=== PATIENT | male | born 1960 | race Caucasian/White ===

== ENCOUNTER 2018-05-28 14:04 | Observation (INO) ==
[2018-05-28] MEDS ORDERED: Sod Chloride 0.9% Inj 1,000 ML IV.CONT SCH (14:30)
--- NOTE | 2018-05-28 14:30 | ED ---
HPI General Chief complaint: Chest Pain Stated complaint: chest pain Time Seen by Provider: 05/28/18 14:21 Source: patient Mode of arrival: ambulatory Limitations: no limitations History of Present Illness HPI narrative: This 57-year-old male says he had pain across his abdomen since about 1:00 this morning. He was up watching TV when the pain started and it was more severe then. He had eaten some chicken prior to the onset of the pain. He does not recall having pain like this before. He has no history of abdominal surgery. He was not short of breath. He does smoke cigarettes. He has no history of heart disease. The pain is fairly constant pain that wraps around to both flank areas. Related Data Home Medications Medication Instructions Recorded Confirmed No Known Home Medications 05/28/18 05/28/18 Allergies Allergy/AdvReac Type Severity Reaction Status Date / Time No Known Allergies Allergy Verified 05/28/18 14:15 Review of Systems ROS: all other systems reviewed are negative [facility] Medical History Medical History No significant past medical history (Acute) Surgical History Surgical History History of nasal surgery (Acute) Social History Social History Substance History: No History of Abuse Smoking Status: Current every day smoker Tobacco Type: Cigarettes How Often Do You Have a Drink Containing Alcohol: Monthly or less Immunization History Tetanus Immunization: Unsure Exam Narrative Exam Narrative: GENERAL: [-] SKIN: Focused skin assessment warm/dry. HEAD: Atraumatic. Normocephalic. EYES: Pupils equal and round. No scleral icterus. No injection or drainage. ENT: No nasal bleeding or discharge. Mucous membranes pink and moist. NECK: Trachea midline. No JVD. CARDIOVASCULAR: Regular rate and rhythm. No murmur appreciated. RESPIRATORY: No accessory muscle use. Clear to auscultation. Breath sounds equal bilaterally. GASTROINTESTINAL: Abdomen soft, there is tenderness in the epigastric and right upper quadrant areas.nondistended. Hepatic and splenic margins not palpable. MUSCULOSKELETAL: No obvious deformities. No clubbing. No cyanosis. No edema. NEUROLOGICAL: Awake and alert. No obvious cranial nerve deficits. Motor grossly within normal limits. Normal speech. PSYCHIATRIC: Appropriate mood and affect; insight and judgment normal. Course Initial Documented Vital Signs Temperature 98.3 F 05/28/18 14:10 Pulse Rate 57 L 05/28/18 14:10 Respiratory Rate 15 05/28/18 14:10 Blood Pressure 175/81 H 05/28/18 14:10 Last Documented Vital Signs Temperature 98.3 F 05/28/18 14:10 Pulse Rate 57 L 05/28/18 14:10 Respiratory Rate 15 05/28/18 14:10 Blood Pressure 175/81 H 05/28/18 14:10 Medical Decision Making MDM Narrative Medical decision making narrative: Patient's pain is not consistent with coronary artery disease. An EKG and troponin are negative. Workup for cholecystitis has been done. His lipase is 90 is alk phos is 136. Hemoglobin 16 4 with a white count of 15,000. An ultrasound of the gallbladder shows a prominent gallstone in the gallbladder measuring 3.8 cm. There is thickening of the gallbladder wall with some fluid around the gallbladder. This could be consistent with acute or chronic cholecystitis. I suspect this is acute cholecystitis as the patient has not had these symptoms before. His pain is less than it was last night but he is still having pain. Case discussed with Dr. Phillips. He will be admitted to medical service with diagnosis of acute cholecystitis Medical Screen Exam Complete: Yes Emergency Medical Condition: Yes Differential Diagnosis Differential Diagnosis: Differential includes cholelithiasis, cholecystitis, gastritis, coronary artery disease. Lab Data Result diagrams: 05/28/18 14:25 05/28/18 14:25 Lab Results 05/28/18 05/28/18 Range/Units 14:25 14:25 CBC w Diff Auto diff final WBC 15.1 H (4.0-11.0) th/mm3 RBC 5.37 (4.50-5.90) mil/mm3 Hgb 16.4 (13.0-17.0) gm/dL Hct 48.7 (39.0-51.0) % MCV 90.6 (80.0-100.0) fL MCH 30.5 (27.0-34.0) pg MCHC 33.6 (32.0-36.0) % RDW 13.3 (11.6-17.2) % Plt Count 243 (150-450) th/mm3 MPV 7.9 (7.0-11.0) fL Neut % (Auto) 93.4 H (16.0-70.0) % Lymph % (Auto) 4.1 L (9.0-44.0) % [place] % (Auto) 2.4 (0.0-8.0) % Eos % (Auto) 0.0 (0.0-4.0) % Baso % (Auto) 0.1 (0.0-2.0) % Neut # (Auto) 14.1 H (1.8-7.7) th/mm3 Lymph # (Auto) 0.6 L (1.0-4.8) th/mm3 [place] # (Auto) 0.4 (0.0-0.9) th/mm3 Eos # (Auto) 0.0 (0.0-0.4) th/mm3 Baso # (Auto) 0.0 (0.0-0.2) th/mm3 WBC Differential . Differential Comment . Sodium 136 (136-145) meq/L Potassium 3.9 (3.5-5.1) meq/L Chloride 104 (98-107) meq/L Carbon Dioxide 22.8 (21.0-32.0) meq/L Anion Gap 9 (5-15) meq/L BUN 17 (7-18) mg/dL Creatinine 0.67 (0.60-1.30) mg/dL Estimated GFR Greater than 89 (>89) mL/min Random Glucose 120 H (74-106) mg/dL Calcium 8.6 (8.5-10.1) mg/dL Magnesium 2.1 (1.5-2.5) mg/dL Total Bilirubin 0.4 (0.2-1.0) mg/dL AST 17 (15-37) U/L ALT 18 (12-78) U/L Alkaline Phosphatase 136 H (45-117) U/L Troponin I Less than 0.02 L (0.02-0.05) ng/mL Total Protein 7.7 (6.4-8.2) g/dL Albumin 3.6 (3.4-5.0) g/dL Lipase 90 (73-393) U/L Imaging Data Radiologist's impression: Gallbladder Ultrasound 05/28/18 14:27 CONCLUSION: 1. Prominent gallstone in the gallbladder measuring 3.8 cm. There is thickening of the gallbladder wall with some fluid around the gallbladder. These findings can be seen with either acute or chronic cholecystitis. Recommend correlation with patient's physical exam and laboratory values. Discharge Plan Discharge Disposition Patient Disposition: ED Admit(ED Internal Use Only) Discharge Condition Condition: Fair Discharge Order Discharge Orders: ED Use Only Admit Order (Routine); Ordered 05/28/18 Ordered By: Sahil Lawler Discharge Details Diagnosis: Acute calculous cholecystitis Physicians Team ED Provider: Sahil Lawler Primary Care Provider: UNKNOWN, Rxs /Orders / Referrals /Forms Prescriptions: No Action No Known Home Medications RF: 0 Discharge Instructions Patient Printed Instructions: Chest Pain (ED) Status ED Status: With Doctor
[2018-05-28 14:44] LABS: Baso % (Auto) 0.1 % (0.0-2.0); Hematocrit 48.7 % (39.0-51.0); Hemoglobin 16.4 gm/dL (13.0-17.0); Lymph # (Auto) 0.6 th/mm3 (1.0-4.8); Lymph % (Auto) 4.1 % (9.0-44.0); Mean Corpuscular HGB Conc 33.6 % (32.0-36.0); Mean Corpuscular Hemoglobin 30.5 pg (27.0-34.0); Mean Corpuscular Volume 90.6 fL (80.0-100.0); Mean Platelet Volume 7.9 fL (7.0-11.0); Mono # (Auto) 0.4 th/mm3 (0.0-0.9); Mono % (Auto) 2.4 % (0.0-8.0); Neut # (Auto) 14.1 th/mm3 (1.8-7.7); Neut % (Auto) 93.4 % (16.0-70.0); Platelet Count 243 th/mm3 (150-450); Red Blood Count 5.37 mil/mm3 (4.50-5.90); Red Cell Distribution Width 13.3 % (11.6-17.2); White Blood Count 15.1 th/mm3 (4.0-11.0)
[2018-05-28 14:56] LABS: Chloride 104 meq/L (98-107); Potassium 3.9 meq/L (3.5-5.1); Sodium 136 meq/L (136-145)
[2018-05-28 15:00] LABS: Albumin 3.6 g/dL (3.4-5.0); Anion Gap 9 meq/L (5-15); Blood Urea Nitrogen 17 mg/dL (7-18); Calcium 8.6 mg/dL (8.5-10.1); Carbon Dioxide 22.8 meq/L (21.0-32.0); Glucose,Random 120 mg/dL (74-106); Lipase 90 U/L (73-393); Magnesium 2.1 mg/dL (1.5-2.5)
[2018-05-28 15:03] LABS: Alanine Aminotransferase 18 U/L (12-78); Aspartate Aminotransferase 17 U/L (15-37); Glomerular Filtration Rate Greater Than 89 mL/min (>89)
--- NOTE | 2018-05-28 15:04 | US ---
EXAM DATE: 05/28/2018 2:58 PM EST AGE/SEX: 57 years / Male INDICATIONS: Epigastric pain. CLINICAL DATA: This is the patient's initial encounter. Patient reports that signs and symptoms have been present for 1 day and indicates a pain score of 7/10. MEDICAL/SURGICAL HISTORY: . Abdominal pain. . Nasal surgery. COMPARISON: No prior exams available for comparison. MEASUREMENTS: Liver:__ 18.7 cm. Common Bile Duct:__ 5mm. FINDINGS: Liver: The liver is mildly enlarged. The echogenicity is within normal limits. There are no dilated biliary ducts. There is no evidence of ascites. Portal Vein: Hepatopedal flow seen in portal vein. Common Duct: No intraluminal mass or stone visualized. Gallbladder: There is a prominent stone along the base of the gallbladder measuring approximately 3. 8 cm. There is some thickening of the gallbladder wall at 6 mm with some fluid around the gallbladder . Pancreas: The visualized portions are within normal limits Right Kidney: Normal echogenicity and cortical thickness. No mass or hydronephrosis. Other: None. CONCLUSION: 1. Prominent gallstone in the gallbladder measuring 3.8 cm. There is thickening of the gallbladder w all with some fluid around the gallbladder. These findings can be seen with either acute or chronic c holecystitis. Recommend correlation with patient's physical exam and laboratory values. Electronically signed by: Bran Agarwal MD Board Certified Radiologist 05/28/2018 3:02 PM EST
[2018-05-28 15:05] LABS: Total Protein 7.7 g/dL (6.4-8.2)
[2018-05-28 15:06] LABS: Alkaline Phosphatase 136 U/L (45-117)
[2018-05-28] MEDS ORDERED: Piperacil/Tazo 4.5 GM Premix 4.5 GM/100 ML BAG IV.SIG SCH ×2 (16:00→21:00)
[2018-05-28] MEDS ORDERED: Bisacodyl 10 MG Supp RECTAL PRN ×2 (16:26→16:36)
[2018-05-28] MEDS ORDERED: Acetaminophen 325 MG Tablet PO PRN ×2 (16:26→16:36)
[2018-05-28] MEDS ORDERED: Senna/Docusate Sodium 8.6/50 MG Tablet PO PRN (16:36)
--- NOTE | 2018-05-28 17:19 | P.HPIM ---
History of Present Illness Service: Hospitalist Primary Care Physician: UNKNOWN Chief Complaint: Abdominal pain History of Present Illness: Patient is a 57-year-old male who presented to the emergency room with a complaint of pain across his abdomen since morning. Reports a sharp pain that starts epigastrically and rotates around his flanks. He has had some episodes of very brief intermittent pain throughout the years but nothing like this before. Denies any medical conditions-reports his last physical was about 2-3 years ago when he was living in [place]. Takes no regularly scheduled medications. No family history of gallbladder problems that he knows of; only family history he can recall is that both parents had strokes. Denies chest pain or shortness of breath. No fever or chills. No active nausea or vomiting; has no desire for food at this time due to the pain. No recent diarrhea. Reports that he is still having frequent sharp pains through his upper abdomen. Patient initially presented with a complaint of chest pain as well. He was evaluated in the emergency room - EKG and troponins negative. Inpatient Certification Inpatient Certification: I certify that the inpatient services were ordered in accordance with Medicare regulations governing the order. This includes certification that hospital inpatient services are reasonable and necessary and in the case of services not specified as inpatient-only under 42 CFR 419.22(n), that they are appropriately provided as inpatient services in accordance to with the 2-midnight benchmark under 43 CFR 412.3(e) Estimated Total Length of Stay (Days): 2 Plans for Post Hospital Care: Not yet determined Review of Systems Review of Systems: all other systems reviewed are negative [facility] Medical History Medical History No significant past medical history (Acute) Surgical History Surgical History History of nasal surgery (Acute) Family History Family History Father Stroke Mother Stroke Social History Social History Substance History: No History of Abuse Smoking Status: Current every day smoker Tobacco Type: Cigarettes How Often Do You Have a Drink Containing Alcohol: Monthly or less Immunization History Tetanus Immunization: Unsure Medications and Allergies Allergies Allergy/AdvReac Type Severity Reaction Status Date / Time No Known Allergies Allergy Verified 05/28/18 14:15 Home Medications Medication Instructions Recorded Confirmed Type No Known Home Medications 05/28/18 05/28/18 History Active Medications: Active Medications Acetaminophen (Tylenol) 650 mg PO Q4H PRN PRN Reason: Temp > 100.4 Al Hydroxide/Mg Hydroxide (Milk Of Magnesia Liq) 30 ml PO Q12H PRN PRN Reason: Mild Constipation Bisacodyl (Dulcolax Supp) 10 mg RECTAL DAILY PRN PRN Reason: SEVERE CONSITIPATION Sodium Chloride (Ns Inj) 1,000 mls @ 100 mls/hr IV.CONT .Q10H DIYA Stop: 05/29/18 00:29 Last Admin: 05/28/18 14:33 Dose: 125 mls/hr Piperacillin/Tazobactam/Dextrose (Zosyn 4.5 Gm Premix) 4.5 gm in 100 mls @ 200 mls/hr IV.SIG ONCE DIYA Piperacillin/Tazobactam/Dextrose (Zosyn 3.375 Gm Premix) 3.375 gm in 50 mls @ 100 mls/hr IV.SIG Q6H DIYA Lactulose (Lactulose Liq) 30 ml PO DAILY PRN PRN Reason: SEVERE CONSITIPATION Ondansetron HCl (Zofran Inj) 4 mg IV.PUSH Q6H PRN PRN Reason: NAUSEA OR VOMITING Sennosides (Senokot) 17.2 mg PO Q12H PRN PRN Reason: Moderate Constipation Sodium Chloride (Ns Flush) 2 ml IV.FLUSH PRN PRN PRN Reason: FLUSH AFTER USING IV ACCESS Sodium Chloride (Ns Flush) 2 ml IV.FLUSH BID DIYA Sodium Chloride (Ns Flush) 2 ml IV.FLUSH PRN PRN PRN Reason: FLUSH AFTER USING IV ACCESS Physical Exam Vital signs: Last Vital Signs Temp 98.3 F 05/28/18 14:10 Pulse 50 L 05/28/18 16:35 Resp 16 05/28/18 16:35 BP 153/82 H 05/28/18 16:35 Pulse Ox 97 05/28/18 16:35 Intake & Output 05/26/18 05/27/18 05/28/18 05/29/18 06:59 06:59 06:59 06:59 Weight 79 kg Narrative: GENERAL: Well-nourished, well-developed adult male in no obvious distress. SKIN: Warm and dry. HEAD: Atraumatic. Normocephalic. CARDIOVASCULAR: Regular rate and rhythm. RESPIRATORY: No accessory muscle use. Clear to auscultation. Breath sounds equal bilaterally. GASTROINTESTINAL: Abdomen soft, tender through epigastric and right upper quadrant, some guarding, non-distended. Positive bowel sounds. MUSCULOSKELETAL: Extremities without clubbing, cyanosis, or edema. No obvious deformities. NEUROLOGICAL: Awake and alert. No obvious cranial nerve deficits. Motor grossly within normal limits. Normal speech. PSYCHIATRIC: Appropriate mood and affect; insight and judgment good. Results Labs CBC & Chem 7: 05/28/18 14:25 05/28/18 14:25 Imaging Impressions Gallbladder Ultrasound 05/28/18 14:27 CONCLUSION: 1. Prominent gallstone in the gallbladder measuring 3.8 cm. There is thickening of the gallbladder wall with some fluid around the gallbladder. These findings can be seen with either acute or chronic cholecystitis. Recommend correlation with patient's physical exam and laboratory values. Caprini VTE Risk Assessment Caprini VTE Risk Assessment: Moderate/High Risk (score >= 2) Caprini Risk Assessment Model: Point Value = 1 Point Value = 2 Point Value = 3 Point Value = 5 Age 41-60 Minor surgery BMI > 25 kg/m2 Swollen legs Varicose veins or History of unexplained or recurrent spontaneous Oral contraceptives or hormone replacement Sepsis (< 1 month) Serious lung disease, including pneumonia (< 1 month) Abnormal pulmonary function Acute myocardial infarction Congestive heart failure (< 1 month) History of inflammatory bowel disease Medical patient at bed rest Age 61-74 Arthroscopic surgery Major open surgery (> 45 min) Laparoscopic surgery (> 45 min) Malignancy Confined to bed (> 72 hours) Immobilizing plaster cast Central venous access Age >= 75 History of VTE Family history of VTE Factor V Leiden Prothrombin [id number] Lupus anticoagulant Anticardiolipin antibodies Elevated serum homocysteine Heparin-induced thrombocytopenia Other congenital or acquired thrombophilia Stroke (< 1 month) Elective arthroplasty Hip, pelvis, or leg fracture Acute spinal cord injury (< 1 month) Prophylaxis Regimen: Total Risk Factor Score Risk Level Prophylaxis Regimen 0-1 Low Early ambulation 2 Moderate Order ONE of the following: *Sequential Compression Device (SCD) *Heparin 5000 units SQ BID 3-4 Higher Order ONE of the following medications: *Heparin 5000 units SQ TID *Enoxaparin/Lovenox 40 mg SQ daily (WT < 150 kg, CrCl > 30 mL/min) *Enoxaparin/Lovenox 30 mg SQ daily (WT < 150 kg, CrCl > 10-29 mL/min) *Enoxaparin/Lovenox 30 mg SQ BID (WT < 150 kg, CrCl > 30 mL/min) AND/OR *Sequential Compression Device (SCD) 5 or more Highest Order ONE of the following medications: *Heparin 5000 units SQ TID (Preferred with Epidurals) *Enoxaparin/Lovenox 40 mg SQ daily (WT < 150 kg, CrCl > 30 mL/min) *Enoxaparin/Lovenox 30 mg SQ daily (WT < 150 kg, CrCl > 10-29 mL/min) *Enoxaparin/Lovenox 30 mg SQ BID (WT < 150 kg, CrCl > 30 mL/min) AND *Sequential Compression Device (SCD) Assessment and Plan Plan Patient is a 57-year-old male who presented to the emergency room with a complaint of pain across his abdomen since morning. Reports a sharp pain that starts epigastrically and rotates around his flanks. Acute cholecystitis -N.p.o.; IVF fluid for hydration -Dr. Phillips consulted -Zosyn started; WBCs 15,000 at admit. -Pain management. E force database consulted; patient has no history of recent narcotic prescription. DVT prophylaxis: SCDs; chemical prophylaxis per surgery Discharge planning: Likely home once resolved
[2018-05-28] MEDS ORDERED: Morphine Inj 4 MG/ML Vial IV.PUSH PRN ×4 (17:22→21:07)
[2018-05-28] MEDS ORDERED: Morphine Sulfate Inj 2 MG/ML Vial IV.PUSH PRN (17:22)
[2018-05-28] MEDS ORDERED: Naloxone Inj 0.4 MG/ML Vial IV.PUSH PRN (17:22)
--- NOTE | 2018-05-29 00:28 | MB ---
cc: Zhao Phillips MD DATE: 05/28/2018 PHYSICIAN REQUESTING CONSULTATION: MAYNOR Walker REASON FOR CONSULTATION: Acute cholecystitis. HISTORY OF PRESENT ILLNESS: The patient is a 57-year-old man who was in his normal state of health when he developed chest and epigastric pain, sudden severe onset after eating some barbecue. This continued to get worse overnight, and the patient could not sleep. He has never had pain like this before and denies any previous history or knowledge of any gallbladder problems or gallstones. The patient was seen at [facility], underwent cardiac evaluation as well as an ultrasound of his gallbladder. The patient had no evidence of cardiac disease and had significant edema of his gallbladder with a large gallstone in the neck of the gallbladder. The patient also had elevated leukocytosis of 15,000. The patient also clinically had a concern for acute cholecystitis and therefore was admitted and placed on IV antibiotics. General surgery was consulted. REVIEW OF SYSTEMS: A 12-point review of systems conducted with the patient and is negative except for the pertinent positives mentioned above in history of present illness. PAST MEDICAL HISTORY: None. PAST SURGICAL HISTORY: No previous major operations. ALLERGIES: NO KNOWN DRUG ALLERGIES. HOME MEDICATIONS: None. SOCIAL HISTORY: The patient uses cigarettes on a currently every day use. The patient denies illicit drug use or history of abuse. He does occasionally use alcohol. PHYSICAL EXAMINATION: VITAL SIGNS: Temperature 98.3 degrees, pulse 57, blood pressure 175/81, O2 saturation is 95% on room air. GENERAL: The patient is a well-developed, well-nourished, male in no acute distress. He does not appear acute or chronically ill. He appears comfortable, lying in hospital bed. HEENT: Head is normocephalic, atraumatic. Pupils are round and reactive and accommodate to light. Sclerae are anicteric. Oral cavity is clear. Airway is patent. NECK: Supple. No JVD. LUNGS: Breath sounds present bilaterally. Nonlabored breathing pattern. HEART: Regular rate and rhythm. PMI is nondisplaced. ABDOMEN: Soft. Tender to palpation in right upper quadrant with palpable gallbladder dome with reproducible pain without Villafana sign. No surgical scars. No hernias. Normal bowel sounds. EXTREMITIES: No clubbing, cyanosis, or edema. NEUROLOGIC: The patient is alert and oriented x3. Nonfocal peripheral exam. Cranial nerves 2-12 are grossly intact. Mood, judgment, and insight are intact. LABORATORY VALUES: Leukocytosis 15,000, hemoglobin is 15. Bilirubin is 0.4, AST is 17, ALT is 18, alkaline phosphatase is 136. IMAGING: Ultrasound of the gallbladder shows a large gallstone in the neck of the gallbladder. ASSESSMENT AND PLAN: The patient is a 57-year-old male with symptomatic cholelithiasis with possible early cholecystitis. I discussed with the patient the gallbladder disease including cholelithiasis and acute cholecystitis. I discussed nonoperative and operative management as well as more urgent surgery versus elective surgery. The patient would prefer to be able to be treated nonoperatively with antibiotics and to be discharged in the next 24-48 hours, to return to work on Thursday and to schedule a laparoscopic cholecystectomy in a more elective fashion. If he chooses to do this and is medically indicated to be discharged over the weekend, he can follow up with me next week in the office for planned cholecystectomy. We will also discharge the patient on antibiotics in this case. However if the patient develops persistent or worsening signs of acute cholecystitis such as pain and signs of continued infection, he is agreeable to staying in the hospital at [place] and undergoing urgent laparoscopic cholecystectomy, likely on Thursday. The patient can have clear liquid diet at this time. The patient is discharged. Also of note, he will need to be on low fat diet. Thank you very much for this consultation. We will follow along with the patient. Please call if any questions or if we can be of any further assistance in this patient's care. Zhao Phillips MD AWG/donna , 11:49 PM , 11:59 PM
[2018-05-29] MEDS: Piperacil/Tazo 3.375 GM Premix 3.375 GM/50 ML PIGGYBACK IV.SIG SCH ×2 (03:26→09:33)
--- NOTE | 2018-05-29 10:26 | P.PNIM ---
Subjective Interval history: Patient seen lying in bed. Denies any current abdominal pain. Has been tolerating clear liquids with no problem. Still has very little appetite. Agrees that he would like to follow-up outpatient for possible surgery. Physical Exam Vital signs: Last Vital Signs Temp 99.4 F 05/29/18 04:00 Pulse 66 05/29/18 08:00 Resp 17 05/29/18 04:00 BP 134/84 05/29/18 04:00 Pulse Ox 96 05/29/18 04:00 Intake & Output 05/27/18 05/28/18 05/29/18 05/30/18 06:59 06:59 06:59 06:59 Intake Total 1150 / 1150 50 / 50 Balance 1150 / 1150 50 / 50 Weight 78.4 kg Narrative: GENERAL: Well-nourished, well-developed adult male in no obvious distress. SKIN: Warm and dry. HEAD: Atraumatic. Normocephalic. CARDIOVASCULAR: Regular rate and rhythm. RESPIRATORY: No accessory muscle use. Clear to auscultation. Breath sounds equal bilaterally. GASTROINTESTINAL: Abdomen soft, tender through epigastric and right upper quadrant, not guarding now, non-distended. Positive bowel sounds. MUSCULOSKELETAL: Extremities without clubbing, cyanosis, or edema. No obvious deformities. NEUROLOGICAL: Awake and alert. No obvious cranial nerve deficits. Motor grossly within normal limits. Normal speech. PSYCHIATRIC: Appropriate mood and affect; insight and judgment good. Results Labs CBC & Chem 7: 05/28/18 14:25 05/28/18 14:25 Imaging Imaging: Impressions Gallbladder Ultrasound 05/28/18 14:27 CONCLUSION: 1. Prominent gallstone in the gallbladder measuring 3.8 cm. There is thickening of the gallbladder wall with some fluid around the gallbladder. These findings can be seen with either acute or chronic cholecystitis. Recommend correlation with patient's physical exam and laboratory values. Assessment and Plan Plan Patient is a 57-year-old male who presented to the emergency room with a complaint of pain across his abdomen since morning. Reports a sharp pain that starts epigastrically and rotates around his flanks. Acute cholecystitis -N.p.o.; IVF fluid for hydration -Dr. Phillips consulted -recommends cholecystectomy however it is not emergent. Patient has decided to follow-up as outpatient -Zosyn started; WBCs 15,000 at admit. -Pain management. E force database consulted; patient has no history of recent narcotic prescription. DVT prophylaxis: SCDs; chemical prophylaxis per surgery Discharge planning: Home today Progress Note: Quality VTE Deep Vein Thrombosis/Pulmonary Embolism Present on Admission: No
--- NOTE | 2018-05-29 10:30 | P.DS ---
DS: Providers Date of admission: 05/28/18 16:26 Primary care physician: UNKNOWN Consults: 05/28/18 16:25 Consult to General Surgery Routine Consulting Provider: Zhao Phillips Reason for Consultation: acute cholecystitis Notified:: Service Spoke with:: JULIUS Date Notified:: 05/28/18 Time Notified:: 16:31 Ordering Provider: YOSEF Brief History from admission: Patient is a 57-year-old male who presented to the emergency room with a complaint of pain across his abdomen since morning. Reports a sharp pain that starts epigastrically and rotates around his flanks. He has had some episodes of very brief intermittent pain throughout the years but nothing like this before. Denies any medical conditions-reports his last physical was about 2-3 years ago when he was living in [place]. Takes no regularly scheduled medications. No family history of gallbladder problems that he knows of; only family history he can recall is that both parents had strokes. Denies chest pain or shortness of breath. No fever or chills. No active nausea or vomiting; has no desire for food at this time due to the pain. No recent diarrhea. Reports that he is still having frequent sharp pains through his upper abdomen. Patient initially presented with a complaint of chest pain as well. He was evaluated in the emergency room - EKG and troponins negative. DS: Summary Patient is a 57-year-old male who presented to the emergency room with a complaint of pain across his abdomen since morning. Reports a sharp pain that starts epigastrically and rotates around his flanks. Acute cholecystitis -Initially n.p.o.; IVF fluid for hydration; transition to clear liquids - tolerating well -Dr. Phillips consulted -recommends cholecystectomy however it is not emergent. Patient has decided to follow-up as outpatient -Zosyn started; WBCs 15,000 at admit. Gen surgery recommending discharge on p.o. antibiotics. -Pain management requiring narcotic. E force database consulted; patient has no history of recent narcotic prescription. Time Spent with Patient Total time spent providing and/or coordinating discharge services: <30 min Quality: VTE Deep Vein Thrombosis/Pulmonary Embolism Present on Admission: No Exam Narrative Exam Narrative: GENERAL: Well-nourished, well-developed adult male in no obvious distress. SKIN: Warm and dry. HEAD: Atraumatic. Normocephalic. CARDIOVASCULAR: Regular rate and rhythm. RESPIRATORY: No accessory muscle use. Clear to auscultation. Breath sounds equal bilaterally. GASTROINTESTINAL: Abdomen soft, tender through epigastric and right upper quadrant, not guarding now, non-distended. Positive bowel sounds. MUSCULOSKELETAL: Extremities without clubbing, cyanosis, or edema. No obvious deformities. NEUROLOGICAL: Awake and alert. No obvious cranial nerve deficits. Motor grossly within normal limits. Normal speech. PSYCHIATRIC: Appropriate mood and affect; insight and judgment good. Results Labs on day of discharge: Labs from last 24 hours 05/28/18 05/28/18 14:25 14:25 CBC w Diff Auto diff final WBC 15.1 H RBC 5.37 Hgb 16.4 Hct 48.7 MCV 90.6 MCH 30.5 MCHC 33.6 RDW 13.3 Plt Count 243 MPV 7.9 Neut % (Auto) 93.4 H Lymph % (Auto) 4.1 L Sharkey % (Auto) 2.4 Eos % (Auto) 0.0 Baso % (Auto) 0.1 Neut # (Auto) 14.1 H Lymph # (Auto) 0.6 L Sharkey # (Auto) 0.4 Eos # (Auto) 0.0 Baso # (Auto) 0.0 WBC Differential . Differential Comment . Sodium 136 Potassium 3.9 Chloride 104 Carbon Dioxide 22.8 Anion Gap 9 BUN 17 Creatinine 0.67 Estimated GFR Greater than 89 Random Glucose 120 H Calcium 8.6 Magnesium 2.1 Total Bilirubin 0.4 AST 17 ALT 18 Alkaline Phosphatase 136 H Troponin I Less than 0.02 L Total Protein 7.7 Albumin 3.6 Lipase 90 Impressions ITS Impressions Gallbladder Ultrasound 05/28/18 14:27 CONCLUSION: 1. Prominent gallstone in the gallbladder measuring 3.8 cm. There is thickening of the gallbladder wall with some fluid around the gallbladder. These findings can be seen with either acute or chronic cholecystitis. Recommend correlation with patient's physical exam and laboratory values. Discharge Plan Discharge Disposition Patient Disposition: 01 Discharge Home Discharge Condition Condition: Stable Discharge Order Discharge Orders: Discharge Order (Routine); Ordered 05/29/18 Ordered By: Tamiko Monreal Physicians Team ED Provider: Sahil Lawler Primary Care Provider: UNKNOWN, Attending Provider: Alcon Ramos Other Providers: Zhao Phillips Rxs /Orders / Referrals /Forms Prescriptions: New tramadol 50 mg tablet 100 mg PO Q6H PRN (Reason: Acute Pain Exception) Qty: 24 RF: 0 cefuroxime axetil 500 mg tablet 500 mg PO BID 10 Days Qty: 20 RF: 0 Continue No Known Home Medications RF: 0 Referrals: Zhao Phillips MD [Physician] - See Instructions Discharge Instructions Patient Printed Instructions: Cholecystitis (DC) Discharge Interventions Interventions: Discharge Planning - Case Management Last Done: 05/29/18 10:20 Status ED Status: Left Department
[2018-05-29 10:51] LABS: Baso % (Auto) 0.3 % (0.0-2.0); Eos % (Auto) 0.3 % (0.0-4.0); Hematocrit 45.3 % (39.0-51.0); Hemoglobin 15.3 gm/dL (13.0-17.0); Lymph # (Auto) 1.1 th/mm3 (1.0-4.8); Lymph % (Auto) 8.2 % (9.0-44.0); Mean Corpuscular HGB Conc 33.8 % (32.0-36.0); Mean Corpuscular Hemoglobin 30.1 pg (27.0-34.0); Mean Corpuscular Volume 89.2 fL (80.0-100.0); Mean Platelet Volume 7.8 fL (7.0-11.0); Mono # (Auto) 1.6 th/mm3 (0.0-0.9); Mono % (Auto) 11.5 % (0.0-8.0); Neut # (Auto) 11.2 th/mm3 (1.8-7.7); Neut % (Auto) 79.7 % (16.0-70.0); Platelet Count 219 th/mm3 (150-450); Red Blood Count 5.09 mil/mm3 (4.50-5.90); Red Cell Distribution Width 12.5 % (11.6-17.2); White Blood Count 13.9 th/mm3 (4.0-11.0)
[2018-05-29 10:56] LABS: Chloride 105 meq/L (98-107); Potassium 3.6 meq/L (3.5-5.1); Sodium 139 meq/L (136-145)
[2018-05-29 11:01] LABS: Calcium 8.5 mg/dL (8.5-10.1)
[2018-05-29 11:02] LABS: Albumin 3.2 g/dL (3.4-5.0); Anion Gap 9 meq/L (5-15); Blood Urea Nitrogen 14 mg/dL (7-18); Carbon Dioxide 25.4 meq/L (21.0-32.0); Glucose,Random 137 mg/dL (74-106)
[2018-05-29 11:05] LABS: Alanine Aminotransferase 16 U/L (12-78); Aspartate Aminotransferase 14 U/L (15-37); Glomerular Filtration Rate Greater Than 89 mL/min (>89)
[2018-05-29 11:06] LABS: Total Protein 6.8 g/dL (6.4-8.2)
[2018-05-29 11:08] LABS: Alkaline Phosphatase 105 U/L (45-117)
--- NOTE | 2018-05-29 19:04 | ECG ---
Date Performed: 05/28/2018 Time Performed: 14:11:04 PTAGE: 57 years EKG: SINUS BRADYCARDIA POSSIBLE LATERAL MYOCARDIAL INFARCTION ABNORMAL ECG INTERPRETATION BASED ON A DEFAULT AGE OF 40 YEARS NO PREVIOUS TRACING DOCTOR: Carlos Duenas Interpretating Date/Time 05/29/2018 19:03:22
== END 2018-05-29 12:01 | disposition home or self-care (01) ==
LOC: PHED 14:04 → PHEDA 16:12 → INTOOBSV 16:12 → PH3 17:26
PROVIDERS: ADMIT Internal Medicine; ATTEND Internal Medicine
DX: K80.00 Calculus of gallbladder with acute cholecystitis without obstruction; R94.31 Abnormal electrocardiogram [ECG] [EKG]; F17.210 Nicotine dependence, cigarettes, uncomplicated; Z82.3 Family history of stroke
CPT/HCPCS: 76705; 80053; 83690; 83735; 84484; 85025; 90761; 93005; 96361; 96365; 96366; 96375; 99285; G0378; J2270; J2543; J7030